=== PATIENT | male | born 1965 | race Caucasian/White ===

== ENCOUNTER 2024-07-03 20:20 | Inpatient (IN) ==
--- NOTE | 2024-07-03 20:36 | Emergency Department Note ---
Impression & Plan Acute ST elevation myocardial infarction (STEMI) ED Provider Note NAME: SUSAN [id number] NAKUL AGE: 59 SEX: Male INFORMANT: Patient and EMS ED PROVIDER(S): Jose Roberto Diaz MD CHIEF COMPLAINT: Chest pain PLAN: Disposition: Admitted Outpatient prescription management: none Referral: None MEDICAL DECISION MAKING: Patient presented because of chest pain. He was made a heart alert prehospital due to his ST elevation on ECG. On arrival the patient had some mild discomfort but was improved compared to the onset of pain. ECG was concerning for ST elevation PA inferiorly. Patient was started on IV fluids. He had some mildly low blood pressures. Suspect this is related to his inferior PA and his nitroglycerin administration. Patient had an elevated cardiac troponin. Other labs are unremarkable. He had received aspirin prehospital. Dr. Irene of interventional cardiology did evaluate the patient in the emergency department and agreed with the diagnosis of acute ST elevation PA. Patient underwent chest x-ray and this was unremarkable. Patient had no dysrhythmia on cardiac monitoring. He was prepped for transfer to the interventional suite. Consultation was made with Dr. Logan Sexton of the [facility] service. Patient was evaluated in the ER for further management. Patient was transferred to the Leadership Development Manager for further management. I refer you to the EMR for further details. Care/management discussed with: rental manager Level of care consideration(s): After review of the information above and other included data, I feel the patient requires escalation of care to admission Triage Nursing notes: reviewed and agree them. Vital Signs: reviewed and remarkable for no significant abnormalities Additional History obtained from: EMS Chronic Medical/Social Conditions affecting care: COPD, incarceration Prior/ Outside/ External records reviewed: none Differential Diagnosis: Cardiac ischemia, aortic dissection, pulmonary embolism, pneumothorax, pneumonia, pericarditis, myocarditis, esophageal rupture, GERD, cholecystitis, pancreatitis, musculoskeletal, as well as other pathologies. Diagnostics, independently interpreted by me: ECG: Twelve-lead ECG reveals findings consistent with acute ST elevation PA inferiorly. Sinus bradycardic rhythm at 53 bpm. Cardiac Monitoring: Cardiac monitoring ordered by me: The patient was placed on continuous cardiac monitoring and observed. It revealed sinus bradycardic rhythm at 58 bpm. Medical decision rules: none Imaging studies: Chest x-ray. Findings: A chest x-ray was performed and revealed no pneumothorax, effusion, infiltrate, pulmonary edema, free air under the diaphragm, or wide mediastinum. Impression: No acute disease. HPI: 59 year old Male arrives for evaluation of chest pain. This started 1930 tonight and is central. The patient also notes the following associated symptoms, nausea, SOB. The patient has been given ASA and 2 nitro for relieving factors. Current pain is rated as 4/10. Pain was a 8/10. No prior cardiac hx but fam hx noted per patient. Pt denies LOC, headache, fevers, chills, diaphoresis, visual changes, neck pain, vomiting, abdominal pain, back pain, melena, hematochezia, urinary symptoms, numbness, weakness, lymphadenopathy, rash, or other complaints. . PAST MEDICAL HISTORY: See Below, HTN, COPD PAST SURGICAL HISTORY: See Below, SOCIAL HISTORY: See Below, incarcerated HOME MEDICATIONS: See Below ALLERGIES: See Below VITALS: See Below PHYSICAL EXAMINATION: GENERAL: Awake, alert, uncomfortable-appearing, in no distress HENT: Normocephalic, atraumatic. Oropharynx unremarkable. EYES: Normal conjunctiva. Sclera non-icteric. NECK: Inspection normal. Non-tender. Supple. No nuchal rigidity. FROM. No masses. RESPIRATORY: Clear to auscultation. No wheezes. No rales. Normal respiratory effort. CARDIAC: Normal rate. Normal rhythm. No murmurs. No rubs. Extremities warm and well perfused. Pulses equal. No JVD. GI: Soft, non-distended. No tenderness to palpation. No rebound or guarding. No masses. RECTAL: Deferred. MUSCULOSKELETAL: Atraumatic. Chest examination reveals no tenderness. The back is symmetrical on inspection without obvious abnormality. There is no CVA tenderness to palpation. No joint edema. LOWER EXTREMITIES: Calves are equal size bilaterally and non-tender. No edema. No discoloration. skin gra NEURO: Normal sensorium. No sensory or motor deficits noted. SKIN: No rash or jaundice noted. PROCEDURES: none CRITICAL CARE: I have personally spent 30 minutes of critical care time in the direct management of this patient. This includes bedside care, interpretation of diagnostic studies, and testing, discussion with consultants, patient, and other required patient management activities. These minutes are in excess of all separately billable procedures. OBSERVATION NOTE: none Past Med/Surg History Problem List (Updated 07/04/24 @ 01:23 by Logan Sexton MD) Hyperlipidemia LDL goal <55 Hyperglycemia CKD (chronic kidney disease) stage 2, GFR 60-89 ml/min Acute ST elevation myocardial infarction (STEMI) (Acute) Medical History (Updated 07/04/24 @ 01:23 by Logan Sexton MD) Smoking hx Elevated fasting glucose COPD (chronic obstructive pulmonary disease) Family History (Updated 07/03/24 @ 21:56 by ADALBERTO Roberson) Mother Coronary heart disease Other Dyslipidemia Hypertension Social History Smoking Status: Former smoker Hx Alcohol Use: No Hx Substance Use: Yes Preferred Language: Chinese Beliefs That Will Affect Care: None Current Living Situation: Other Current Living Situation Comment: Correctional facility Feels Safe at Home: Yes Allergies Allergies Allergy/AdvReac Type Severity Reaction Status Date / Time No Known Allergies Allergy Unverified 07/03/24 23:22 Results & Data (ED) Vital Signs Vital Signs - 24 hr 07/03/24 20:24 07/03/24 20:24 07/03/24 20:26 Temperature 36.9 C Temperature Source Oral Pulse Rate 58 L 59 L Pulse Rate [Apical] Pulse Rate from SpO2 Sensor Respiratory Rate 21 Respiratory Effort / Characteristics Non-Labored Respiratory Depth Normal Blood Pressure 91/67 L Blood Pressure [Right Arm] Blood Pressure Mean 75 Blood Pressure Mean [Right Arm] Pulse Oximetry 94 94 Oxygen Delivery Method Room Air Room Air Oxygen Flow Rate Sepsis Recent Fever Within 48 Hours No Sepsis New/Unexplained Change in Mental Status No Sepsis Action Taken by Nursing Physician Notified 07/03/24 20:34 07/03/24 20:35 07/03/24 20:35 Temperature Temperature Source Pulse Rate 58 L Pulse Rate [Apical] Pulse Rate from SpO2 Sensor Respiratory Rate 20 Respiratory Effort / Characteristics Respiratory Depth Blood Pressure Blood Pressure [Right Arm] Blood Pressure Mean Blood Pressure Mean [Right Arm] Pulse Oximetry 93 94 94 Oxygen Delivery Method Nasal Cannula Room Air Room Air Oxygen Flow Rate 2 Sepsis Recent Fever Within 48 Hours Sepsis New/Unexplained Change in Mental Status Sepsis Action Taken by Nursing 07/03/24 20:38 07/03/24 20:39 07/03/24 20:39 Temperature Temperature Source Pulse Rate 58 L Pulse Rate [Apical] 56 L Pulse Rate from SpO2 Sensor 58 L Respiratory Rate 17 20 Respiratory Effort / Characteristics Non-Labored Respiratory Depth Normal Blood Pressure 105/68 Blood Pressure [Right Arm] 105/68 Blood Pressure Mean 84 Blood Pressure Mean [Right Arm] 80 Pulse Oximetry 94 94 Oxygen Delivery Method Room Air Oxygen Flow Rate Sepsis Recent Fever Within 48 Hours Sepsis New/Unexplained Change in Mental Status Sepsis Action Taken by Nursing 07/03/24 20:39 07/03/24 20:39 07/03/24 20:41 Temperature Temperature Source Pulse Rate 55 L Pulse Rate [Apical] Pulse Rate from SpO2 Sensor 56 L Respiratory Rate 21 Respiratory Effort / Characteristics Respiratory Depth Blood Pressure 105/68 105/68 Blood Pressure [Right Arm] Blood Pressure Mean 84 84 Blood Pressure Mean [Right Arm] Pulse Oximetry 93 Oxygen Delivery Method Oxygen Flow Rate Sepsis Recent Fever Within 48 Hours Sepsis New/Unexplained Change in Mental Status Sepsis Action Taken by Nursing 07/03/24 20:50 Temperature Temperature Source Pulse Rate Pulse Rate [Apical] Pulse Rate from SpO2 Sensor Respiratory Rate Respiratory Effort / Characteristics Respiratory Depth Blood Pressure Blood Pressure [Right Arm] Blood Pressure Mean Blood Pressure Mean [Right Arm] Pulse Oximetry Oxygen Delivery Method Room Air Oxygen Flow Rate Sepsis Recent Fever Within 48 Hours Sepsis New/Unexplained Change in Mental Status Sepsis Action Taken by Nursing Laboratory Data 07/03/24 20:29 07/03/24 20:29 Lab Results 07/03/24 07/03/24 Range/Units 20:29 21:23 WBC 10.48 (4.8-10.8) K/ul RBC 5.50 (4.70-6.10) M/uL Hgb 17.4 (14.0-18.0) g/dl POC Hgb 17.7 (14.0-18.0) g/dl Hct 49.1 (42.0-52.0) % POC Hct 52 (42-52) % MCV 89.3 (80.0-100.0) fL MCH 31.6 (25.0-34.0) pg MCHC 35.4 (32.0-36.0) g/dL RDW Std Deviation 39.6 (36.4-46.3) fL RDW Coeff of Lili 12.0 (11.5-14.5) % Plt Count 295 (130-400) K/uL MPV 10.3 (9.4-12.4) fL Immature Gran % (Auto) 0.4 % Neut % (Auto) 74.9 % Lymph % (Auto) 17.7 % Edgar % (Auto) 5.4 % Eos % (Auto) 1.0 % Baso % (Auto) 0.6 % Neut # (Auto) 7.85 H (1.40-6.50) K/uL Lymph # (Auto) 1.85 (1.20-3.40) K/uL Edgar # (Auto) 0.57 (0.11-0.59) K/uL Eos # (Auto) 0.11 (0.00-0.50) K/uL Baso # (Auto) 0.06 (0.00-0.20) K/uL Immature Gran # (Auto) 0.04 (0.01-0.20) K/uL PT 10.3 (9.0-12.0) Seconds INR 0.9 (0.9-1.1) APTT 21 (21-31) Seconds PTT Ratio 0.8 Activ Coag Time Kaolin 181 H (94-140) SECONDS POC Sodium 140 (135-144) mmol/L Sodium 137 (136-145) mmol/L POC Potassium 4.3 (3.3-5.0) mmol/L Potassium 4.3 (3.5-5.1) mmol/L POC Chloride 104 (101-112) mmol/L Chloride 102 (98-107) mmol/L Carbon Dioxide 25 (21-32) mmol/L POC Total CO2 26 (24-31) mmol/L Anion Gap 10 (3-11) POC Anion Gap 15.0 L (16-25) mmol/L POC BUN 19 H (7-18) mg/dl BUN 17 (6-23) mg/dl Creatinine 1.34 (0.6-1.4) mg/dl POC Creatinine 1.3 (0.6-1.3) mg/dl Est Cr Clr Drug Dosing 66.0 ml/min eGFR 61.40 BUN/Creatinine Ratio 12.7 (10-20) Glucose 215 H (70-99(Fasting)) mg/dl POC Glucose (other) 212 H (70-99) mg/dl Calcium 10.4 H (8.6-10.3) mg/dl POC Ioniz Calcium Kamlesh 1.17 (1.12-1.32) mmol/l Magnesium 2.1 (1.7-2.4) mg/dl Total Bilirubin 0.4 (0.2-1.0) mg/dl AST 20 (13-39) U/L ALT 14 (7-52) U/L Alkaline Phosphatase 72 (34-104) U/L Total Creatine Kinase 87 (30-223) U/L Troponin I High Sens 91.0 H* (0-20) pg/ml B-Natriuretic Peptide 26 (0-100) pg/ml Total Protein 8.1 (6.0-8.3) gm/dl Albumin 5.2 H (3.4-5.0) gm/dl Globulin 2.9 (2.5-4.0) gm/dl Albumin/Globulin Ratio 1.8 (0.9-2) Triglycerides 212 H (0-150) mg/dl Cholesterol 229 H (0-200) mg/dl LDL Cholesterol, Calc 142 mg/dl VLDL Cholesterol, Calc 42 H (0-30) mg/dl HDL Cholesterol 45 mg/dl Cholesterol/HDL Ratio 5.1 H (0-5) Lipase 34 (11-82) U/L TSH 3.497 (0.300-4.500) uIu/ml Administered Medications Parenteral Electrolytes (Plasma-Lyte A Ph 7.4) 1,000 mls @ 100 mls/hr IV .Q10H ONE Stop: 07/04/24 08:04 Last Admin: 07/03/24 23:41 Dose: 100 mls/hr Documented By: CEDRIC Elmore (Icu Protocol For Hyperglycemia) 1 each N/A Q6 FOSTER Stop: 07/06/24 00:00 Last Admin: 07/04/24 01:30 Dose: Not Given Documented By: CEDRIC Discontinued Medications Clopidogrel Bisulfate (Clopidogrel Bisulfate 300 Mg Tab) Confirm Administered Dose 600 mg .ROUTE .STK-MED ONE Stop: 07/03/24 21:19 Last Admin: 07/03/24 21:27 Dose: 600 mg Documented By: NARESH Fentanyl Citrate (Fentanyl Citrate Pf 100 Mcg/2 Ml Vial) Confirm Administered Dose 100 mcg .ROUTE .STK-MED ONE Stop: 07/03/24 20:40 Last Admin: 07/03/24 21:25 Dose: 50 mcg Documented By: NARESH Heparin Sodium (Porcine) (Heparin (Porcine) 1000 Unit/Ml 10 Ml (Leadership Development Manager Use Only)) Confirm Administered Dose 10,000 units .ROUTE .STK-MED ONE Stop: 07/03/24 20:40 Last Admin: 07/03/24 21:26 Dose: 13,000 units Documented By: NARESH Heparin Sodium (Porcine) (Heparin (Porcine) 1000 Unit/Ml 10 Ml (Leadership Development Manager Use Only)) Confirm Administered Dose 10,000 units .ROUTE .STK-MED ONE Stop: 07/03/24 21:25 Last Admin: 07/03/24 21:27 Dose: Not Given Documented By: NARESH Heparin Sodium/Sodium Chloride (Heparin In Nss Infusion 1000 Unit/500 Ml (2 U/Ml) Bag) Confirm Administered Dose 3,000 units IV .STK-MED ONE Stop: 07/03/24 20:40 Last Admin: 07/03/24 21:26 Dose: 3,000 units Documented By: [id number] Ioversol (Optiray 350) Confirm Administered Dose 1 ml .ROUTE .STK-MED ONE Stop: 07/03/24 20:43 Last Admin: 07/03/24 21: Dose: 70 ml Documented By: [id number] Midazolam HCl (Midazolam Hcl 1 Mg/Ml 2ml Vial) Confirm Administered Dose 2 mg .ROUTE .ST-MED ONE Stop: 07/03/24 20:39 Last Admin: 07/03/24 21:25 Dose: Not Given Documented By: NARESH Miscellaneous Information (Patient's Allergy Info Needs Entered) 1 each N/A NOW STA Stop: 07/03/24 21:49 Last Admin: 07/03/24 22:14 Dose: 1 each Documented By: CEDRIC Miscellaneous Information (Patient's Allergy Info Needs Entered) 1 each N/A NOW STA Stop: 07/03/24 22:39 Last Admin: 07/03/24 23:42 Dose: 1 each Documented By: CEDRIC Nicardipine HCl (Nicardipine Hcl Inj 2.5 Mg/Ml 10 Ml Amp) Confirm Administered Dose 25 mg .ROUTE .STK-MED ONE Stop: 07/03/24 20:40 Last Admin: 07/03/24 21:26 Dose: 25 mg Documented By: [id number] Nitroglycerin/Dextrose (Nitroglycerin/D5w 100mcg/Ml 20ml Syr) Confirm Administered Dose 2,000 mcg .ROUTE .STK-MED ONE Stop: 07/03/24 20:41 Last Admin: 07/03/24 21:28 Dose: 2,000 mcg Documented By: [id number] Phenylephrine HCl (Phenylephrine 100mcg/Ml 5ml Syr) Confirm Administered Dose 100 mcg .ROUTE .STK-MED ONE Stop: 07/03/24 21:12 Last Admin: 07/03/24 21:27 Dose: 600 mcg Documented By: NARESH Co-signed By: BPY Phenylephrine HCl (Phenylephrine 100mcg/Ml 5ml Syr) Confirm Administered Dose 100 mcg .ROUTE .STK-MED ONE Stop: 07/03/24 21:15 Last Admin: 07/03/24 21:27 Dose: Not Given Documented By: CMB Imaging Data Radiologist's Impression: Chest X-Ray 07/03/24 20:29 Exam(s): XR CXR 1 VIEW EXAM: XR Chest, 1 View CLINICAL HISTORY: Reason for exam: Chest pain, nonspecific. TECHNIQUE: Frontal view of the chest. COMPARISON: No relevant prior studies available. FINDINGS: Lungs: Slightly prominent interstitial markings over the mid to lower lungs. No definite acute focal infiltrate or consolidation is seen. Pleural space: Unremarkable. No pneumothorax. Heart: Unremarkable. No cardiomegaly. Mediastinum: Unremarkable. Normal mediastinal contour. Bones/joints: Unremarkable. No acute fracture. Upper abdomen: There is no pneumoperitoneum under the diaphragm. IMPRESSION: Slightly prominent interstitial markings over the mid to lower lungs. No definite acute focal infiltrate or consolidation is seen. Electronically signed by: Bryan Benedict MD 07/03/24 22:05 PM Discharge Plan Visit Data Chief Complaint: Heart Alert Stated Complaint: HEART ALERT ED Provider: Jose Roberto Diaz Discharge Problem: Acute ST elevation myocardial infarction (STEMI) Patient Disposition: Admitted As Inpatient Discharge Instructions Interventions: ED Discharge Assessment Last Done: 07/03/24 20:50
[2024-07-03 20:41] LABS: iSTAT Creatinine 1.3 mg/dl (0.6-1.3); iSTAT Hemoglobin 17.7 g/dl (14.0-18.0); iSTAT Ionized Calcium 1.17 mmol/l (1.12-1.32); iSTAT Potassium 4.3 mmol/L (3.3-5.0)
[2024-07-03 20:58] LABS: Basophils # (auto) 0.06 K/uL (0.00-0.20); Basophils % (auto) 0.6 %; Eosinophils # (auto) 0.11 K/uL (0.00-0.50); Hematocrit (blood only) 49.1 % (42.0-52.0); Hemoglobin 17.4 g/dl (14.0-18.0); Immature Granulocytes # (auto) 0.04 K/uL (0.01-0.20); Immature Granulocytes % (auto) 0.4 %; Lymphocytes # (auto) 1.85 K/uL (1.20-3.40); Lymphocytes % (auto) 17.7 %; Mean Corpuscular Hemoglobin 31.6 pg (25.0-34.0); Mean Corpuscular Hgb Conc 35.4 g/dL (32.0-36.0); Mean Corpuscular Volume 89.3 fL (80.0-100.0); Mean Platelet Volume 10.3 fL (9.4-12.4); Monocytes # (auto) 0.57 K/uL (0.11-0.59); Monocytes % (auto) 5.4 %; Neutrophils # (auto) 7.85 K/uL (1.40-6.50); Neutrophils % (auto) 74.9 %; Platelet Count 295 K/uL (130-400); RDW Standard Deviation 39.6 fL (36.4-46.3); White Blood Count 10.48 K/ul (4.8-10.8)
[2024-07-03 21:19] LABS: INR 0.9 (0.9-1.1); Partial Thromboplastin Ratio 0.8; Partial Thromboplastin Time 21 Seconds (21-31); Prothrombin Time 10.3 Seconds (9.0-12.0)
[2024-07-03] MEDS: fentaNYL citrate PF 100 MCG/2 ML VIAL ONE (21:25)
[2024-07-03] MEDS: MIDAZOLAM HCL 1 MG/ML 2ML VIAL ONE (21:25)
[2024-07-03] MEDS: niCARdipine HCL INJ 2.5 MG/ML 10 ML AMP ONE (21:26)
[2024-07-03] MEDS: OPTIRAY 350 ONE (21:26)
[2024-07-03] MEDS: HEPARIN (PORCINE) 1000 UNIT/ML 10 ML (CATH LAB USE ONLY) ONE ×2 (21:26→21:27)
[2024-07-03] MEDS: CLOPIDOGREL BISULFATE 300 MG TAB ONE (21:27)
[2024-07-03] MEDS: PHENYLEPHRINE 100MCG/ML 5ML SYR ONE ×2 (21:27)
[2024-07-03] MEDS: NITROGLYCERIN/D5W 100MCG/ML 20ML SYR ONE (21:28)
[2024-07-03 21:34] LABS: Thyroid Stimulating Hormone 3.497 uIu/ml (0.300-4.500)
--- NOTE | 2024-07-03 21:35 | History & Physical Report ---
Date of Service July 03, 2024 Assessment & Plan (1) Acute ST elevation myocardial infarction (STEMI): (2) CKD (chronic kidney disease) stage 2, GFR 60-89 ml/min: (3) Hyperglycemia: (4) Hyperlipidemia LDL goal <55: Plan The patient is a 59-year-old male with no significant past medical history.The patient presented to the emergency department from [facility], after developing acute onset of chest pain at about 730 this evening, while he was receiving his usual medications there. He was given aspirin 324 mg, and sublingual nitroglycerin x 2, which took his pain from a 8/10 down to 4/10. Upon initial messaging from [facility], patient was made as a heart alert. Upon arrival to the ED, he was found to have an inferior wall STEMI, and was taken emergently to the cardiac [facility], where a successful PCI with JOSIE to mid circumflex 99% lesion, that was reduced to 0% was performed. The patient is being admitted to the ICU, for ongoing medical care. Significant laboratories revealed troponin of 91.0, glucose 212, and creatinine 1.34. #Acute inferior wall STEMI- Status post successful PCI with JOSIE mid circumflex 99% lesion reduced to 0% The patient will be admitted to the ICU post cardiac catheterization for serial cardiac enzymes, serial EKG's, cardiac rhythm monitoring and a 2-D echocardiogram with Dopplers. DAPT, aspirin 81 mg daily and clopidogrel 75 mg daily x 1 year Metoprolol tartrate 12.5 mg p.o. twice daily, start in a.m. due to relatively blood pressure at this time Start atorvastatin high-dose 40 mg daily Consult cardiology Hyperlipidemia- LDL 142 with target less than 55 Starting atorvastatin 40 mg daily as noted Hyperglycemia- Glucose 212 ICU hyperglycemic protocol Hemoglobin A1c ordered and pending Will need diabetic education and diet planning CKD stage II- Creatinine 1.34 upon admission, with no previous baseline for comparison Repeating laboratories in the a.m. History of Present Illness Chief Complaint: The patient presented to the emergency department from [facility], after developing acute onset of chest pain at about 730 this evening, while he was receiving his usual medications there. He was given aspirin 324 mg, and sublingual nitroglycerin x 2, which took his pain from a 8/10 down to 4/10. Upon initial messaging from [facility], patient was made as a heart alert. Upon arrival to the ED, he was found to have an inferior wall STEMI, and was taken emergently to the cardiac [facility], where a successful PCI with JOSIE to mid circumflex 99% lesion, that was reduced to 0% was performed. The patient is being admitted to the ICU, for ongoing medical care. Primary Care Provider: [facility] The patient is a 59-year-old male with no significant past medical history.The patient presented to the emergency department from [facility], after developing acute onset of chest pain at about 730 this evening, while he was receiving his usual medications there. He was given aspirin 324 mg, and sublingual nitroglycerin x 2, which took his pain from a 8/10 down to 4/10. Upon initial messaging from [facility], patient was made as a heart alert. Upon arrival to the ED, he was found to have an inferior wall STEMI, and was taken emergently to the cardiac [facility], where a successful PCI with JOSIE to mid circumflex 99% lesion, that was reduced to 0% was performed. The patient is being admitted to the ICU, for ongoing medical care. Significant laboratories revealed troponin of 91.0, glucose 212, and creatinine 1.34. Allergies Allergy/AdvReac Type Severity Reaction Status Date / Time No Known Allergies Allergy Unverified 07/03/24 23:22 Past Med/Surg History Problem List (Updated 07/04/24 @ 01:23 by Logan Sexton MD) Hyperlipidemia LDL goal <55 Hyperglycemia CKD (chronic kidney disease) stage 2, GFR 60-89 ml/min Acute ST elevation myocardial infarction (STEMI) (Acute) Medical History (Updated 07/04/24 @ 01:23 by Logan Sexton MD) Smoking hx Elevated fasting glucose COPD (chronic obstructive pulmonary disease) Family History (Updated 07/03/24 @ 21:56 by ADALBERTO Roberson) Mother Coronary heart disease Other Dyslipidemia Hypertension Social History Smoking Status: Former smoker Hx Alcohol Use: No Hx Substance Use: Yes Preferred Language: Malian Beliefs That Will Affect Care: None Current Living Situation: Other Current Living Situation Comment: [facility] Feels Safe at Home: Yes Review of Systems Review of Systems: The patient denies chest pain, palpitations, shortness of breath, dyspnea on exertion, cough, lower extremity swelling, sore throat, fevers, chills, sweats, weight change, fatigue, nausea, vomiting, diarrhea , constipation, abdominal pain, pelvic pain, blood in urine or stool, dysuria, urinary frequency or urgency, lightheadedness, dizziness, headache, memory loss, loss of consciousness, rash, abnormal bruising or bleeding, imbalance, focal or generalized weakness, numbness or tingling in arms or legs, generalized arthralgias or myalgias, back or neck pain, or night sweats. The review of systems is otherwise negative other than for that already noted above, and at least 10 systems have been reviewed. Physical Exam Physical Exam: The patient is awake, alert and oriented 3, well developed and well nourished, normocephalic and atraumatic, lying in bed and in no acute distress. HEENT--PERRL, EOMI, mucous membranes and oropharynx normal. Neck--supple. No JVD. No bruits. Thyroid normal, trachea midline, no adenopathy. Heart--normal S1 and S2. No murmurs, rubs or gallops. Lungs--clear bilaterally, no respiratory distress, no accessory muscle use. Abdomen--normal bowel sounds and soft. Nontender. Nondistended, no hernias or masses, no organomegaly. Extremities--no cyanosis or clubbing. No edema. There are good distal pulses b/l. Dermatologic--normal skin turgor, normal color, no abnormal lymph nodes, no rash. Neurologic--cranial nerves II through XII grossly intact. Rheumatologic--left lower extremity with graft over left lower perineal area, with normal dorsiflexion and range of motion in general noted Psychiatric--normal affect. Results & Data Results & Data Vital Signs (Past 12 Hours) Vital Signs Temp Pulse Pulse Resp BP BP Pulse Ox 07/03/24 20:50 07/03/24 20:39 56 L 20 105/68 94 07/03/24 20:35 58 L 20 94 07/03/24 20:35 94 07/03/24 20:26 59 L 07/03/24 20:24 94 07/03/24 20:24 36.9 C 58 L 21 91/67 L 94 O2 Del Method 07/03/24 20:50 Room Air 07/03/24 20:39 Room Air 07/03/24 20:35 Room Air 07/03/24 20:35 Room Air 07/03/24 20:26 07/03/24 20:24 Room Air 07/03/24 20: Room Air Laboratory Results Laboratory Results WBC 10.48 K/ul (4.8-10.8) 07/03/24: RBC 5.50 M/uL (4.70-6.10) 07/03/24: Hgb 17.4 g/dl (14.0-18.0) 07/03/24 POC Hgb 17.7 g/dl (14.0-18.0) 07/03/24 Hct 49.1 % (42.0-52.0) 07/03/24 POC Hct 52 % (42-52) 07/03/24 MCV 89.3 fL (80.0-100.0) 07/03/24 MCH 31.6 pg (25.0-34.0) 07/03/24 MCHC 35.4 g/dL (32.0-36.0) 07/03/24 RDW Std Deviation 39.6 fL (36.4-46.3) 07/03/24 RDW Coeff of Lili 12.0 % (11.5-14.5) 07/03/24 Plt Count 295 K/uL (130-400) 07/03/24 MPV 10.3 fL (9.4-12.4) 07/03/24 Immature Gran % (Auto) 0.4 % 07/03/24 Neut % (Auto) 74.9 % 07/03/24 Lymph % (Auto) 17.7 % 07/03/24 [place] % (Auto) 5.4 % 07/03/24 Eos % (Auto) 1.0 % 07/03/24 Baso % (Auto) 0.6 % 07/03/24 Neut # (Auto) 7.85 K/uL (1.40-6.50) H 07/03/24 Lymph # (Auto) 1.85 K/uL (1.20-3.40) 07/03/24 [place] # (Auto) 0.57 K/uL (0.11-0.59) 07/03/24 20: Eos # (Auto) 0.11 K/uL (0.00-0.50) 07/03/24: Baso # (Auto) 0.06 K/uL (0.00-0.20) 07/03/24: Immature Gran # (Auto) 0.04 K/uL (0.01-0.20) 07/03/24: PT 10.3 Seconds (9.0-12.0) 07/03/24: INR 0.9 (0.9-1.1) 07/03/24: APTT 21 Seconds (21-31) 07/03/24 PTT Ratio 0.8 07/03/24 Activ Coag Time Kaolin 181 SECONDS (94-140) H 07/03/24 21:23 POC Sodium 140 mmol/L (135-144) 07/03/24: Sodium 137 mmol/L (136-145) 07/03/24 20: POC Potassium 4.3 mmol/L (3.3-5.0) 07/03/24: Potassium 4.3 mmol/L (3.5-5.1) 07/03/24: POC Chloride 104 mmol/L (101-112) 07/03/24 Chloride 102 mmol/L (98-107) 07/03/24 Carbon Dioxide 25 mmol/L (21-32) 07/03/24: POC Total CO2 26 mmol/L (24-31) 07/03/24: Anion Gap 10 (3-11) 07/03/24: POC Anion Gap 15.0 mmol/L (16-25) L 07/03/24: POC BUN 19 mg/dl (7-18) H 07/03/24 BUN 17 mg/dl (6-23) 07/03/24 Creatinine 1.34 mg/dl (0.6-1.4) 07/03/24 20: POC Creatinine 1.3 mg/dl (0.6-1.3) 07/03/24 Est Cr Clr Drug Dosing 66.0 ml/min 07/03/24 20: eGFR 61.40 07/03/24 20: BUN/Creatinine Ratio 12.7 (10-20) 07/03/24 20: Glucose 215 mg/dl (70-99(Fasting)) H 07/03/24 20: POC Glucose (other) 212 mg/dl (70-99) H 07/03/24 20: Calcium 10.4 mg/dl (8.6-10.3) H 07/03/24: POC Ioniz Calcium Kamlesh 1.17 mmol/l (1.12-1.32) 07/03/24: Magnesium 2.1 mg/dl (1.7-2.4) 07/03/24: Total Bilirubin 0.4 mg/dl (0.2-1.0) 07/03/24 20: AST 20 U/L (13-39) 07/03/24: ALT 14 U/L (7-52) 07/03/24: Alkaline Phosphatase 72 U/L (34-104) 07/03/24 20: Total Creatine Kinase 87 U/L (30-223) 07/03/24: Troponin I High Sens 06712.4 pg/ml (0-20) H* D 07/03/24 23:20 B-Natriuretic Peptide 26 pg/ml (0-100) 07/03/24: Total Protein 8.1 gm/dl (6.0-8.3) 07/03/24: Albumin 5.2 gm/dl (3.4-5.0) H 07/03/24: Globulin 2.9 gm/dl (2.5-4.0) 07/03/24: Albumin/Globulin Ratio 1.8 (0.9-2) 07/03/24: Triglycerides 212 mg/dl (0-150) H 07/03/24: Cholesterol 229 mg/dl (0-200) H 07/03/24 20: LDL Cholesterol, Calc 142 mg/dl 07/03/24 20: VLDL Cholesterol, Calc 42 mg/dl (0-30) H 07/03/24: HDL Cholesterol 45 mg/dl 02/15/25 20:29 Cholesterol/HDL Ratio 5.1 (0-5) H 07/03/24 20:29 Lipase 34 U/L (11-82) 07/03/24 20:29 TSH 3.497 uIu/ml (0.300-4.500) 07/03/24 20:29 Nasal Screen MRSA (PCR) Negative (Negative) 07/03/24 Unknown Impressions Chest X-Ray 07/03/24 20:29 Exam(s): XR CXR 1 VIEW EXAM: XR Chest, 1 View CLINICAL HISTORY: Reason for exam: Chest pain, nonspecific. TECHNIQUE: Frontal view of the chest. COMPARISON: No relevant prior studies available. FINDINGS: Lungs: Slightly prominent interstitial markings over the mid to lower lungs. No definite acute focal infiltrate or consolidation is seen. Pleural space: Unremarkable. No pneumothorax. Heart: Unremarkable. No cardiomegaly. Mediastinum: Unremarkable. Normal mediastinal contour. Bones/joints: Unremarkable. No acute fracture. Upper abdomen: There is no pneumoperitoneum under the diaphragm. IMPRESSION: Slightly prominent interstitial markings over the mid to lower lungs. No definite acute focal infiltrate or consolidation is seen. Electronically signed by: Bryan Benedict MD 07/03/24 22:05 PM Code Status & VTE Plan Code Status Full code VTE Prophylaxis Plan VTE Prophylaxis will be ordered: Yes PG Care Time/CCT Total # of Minutes Spent Total Time Spent with Patient: Total time spent is greater than 50% in coordination of care (as documented) at patient's floor/unit and/or counseling patient: Coding Level of Care Code 78474 INT INP/OBS CARE 3/75MIN Diagnoses Acute ST elevation myocardial infarction (STEMI) I21.3 CKD (chronic kidney disease) stage 2, GFR 60-89 ml/min N18.2 Hyperglycemia R73.9 Hyperlipidemia LDL goal <55 E78.5
[2024-07-03 21:37] LABS: Albumin Level 5.2 gm/dl (3.4-5.0); Bilirubin,Total 0.4 mg/dl (0.2-1.0); Calcium 10.4 mg/dl (8.6-10.3); Magnesium 2.1 mg/dl (1.7-2.4); Potassium 4.3 mmol/L (3.5-5.1)
[2024-07-03 21:43] LABS: Albumin Globulin Ratio 1.8 (0.9-2); BUN Creatinine Ratio 12.7 (10-20); Globulin 2.9 gm/dl (2.5-4.0); Total Protein 8.1 gm/dl (6.0-8.3)
--- NOTE | 2024-07-03 21:49 | Cardiac Catheterization ---
Cardiac Cath Procedure Full Procedure Date July 03, 2024 Pre-Procedure Diagnosis Pre-Procedure Diagnosis: STEMI AUC Score AUC Score: acute SC Post-Procedure Diagnosis Post-Procedure Diagnosis: Successful PCI Procedure(s) Performed Procedure(s) Performed: Coronary Angiography and Drug Eluting Stent Director Of Conservation Manas Irene MD Estimated Blood Loss Estimated Blood Loss: None Summary of Findings Culprit for ST elevation SC is a subtotally occluded circumflex Successful PCI of the circumflex with a 2.5 x 23 drug-eluting stent. Stenosis reduced from 99% to 0% normal left-sided filling pressure No aortic stenosis Recommendations Admit to ICU Dual antiplatelet therapy with aspirin and Plavix for target of 1 year Echo prior to discharge Add beta-ryland and statin as tolerated Procedure description This patient was brought to the Program Scheduler emergently. Risk and benefits of the procedure were described in detail. These included injury or even . He understood these risks and informed consent was signed and witnessed. He was brought to the Program Scheduler and placed supine on the table. The right wrist was prepped and draped in the usual sterile fashion. I personally performed moderate sedation on this patient. Ruyd-ld-avla contact and hemodynamic monitoring was provided for the entirety of the procedure by me. 50 mcg of fentanyl was given for conscious sedation. 2 mL of 1% lidocaine was given in the right wrist for local anesthesia. Access to the right radial artery was made using modified center technique and a micropuncture kit. Eventually a 56 Malagasy slender sheath was advanced over the wire. Radial cocktail was given only with nicardipine. initially the left was imaged with a JL 3.5 catheter. I next swapped for a JR4 guide and this was used to image the right coronary artery. At this point I elected to intervene on the circumflex. 8000 heparin was given. ACT was monitored. Additional heparin was given as needed. The guide catheter was EBU 3.0. The wire was a run-through. This was directed into the circumflex/OM. The lesion was predilated the 2.5 x 15 NC balloon up to 10 janette for 10 seconds. The lesion was then stented with a 2.5 x 23 drug-eluting stent deployed at 12 janette for 15 seconds. Final angiograms with and without the wire demonstrated good stent apposition with no evidence of a dissection or perforation. Tolerated procedure well no immediate complications noted. Radial band was used for hemostasis. Findings Left main is a large caliber short length artery that divides into an LAD and circumflex. There is no angiographic disease LAD: Medium to large artery takeoff which gives rise to 2 small diagonal vessels. He continues the anterior interventricular groove and gives multiple septal branches on its way to supply the true apex. There is a mild lesion beginning in the proximal vessel and extending to the second diagonal around 30%. There is a section of moderate intramyocardial bridging in the mid vessel. The diagonals have mild diffuse disease. Circumflex: Medium to large artery takeoff gives rise to a trivial OM1 and then continues in the AV groove where it is subtotally occluded. After intervention, It is seen to give rise to a small OM 2 a medium sized OM 3 and a small lateral branch. The circumflex proper continues as a very small terminal branch in the AV groove. The circumflex is stented from 99% subtotally occluded to 0% residual today. RCA: Medium size artery that gives rise to a small to medium PDA and a slightly bigger PL branch. There is proximal disease around 30 to 40%. Further down in the AV groove there are some mild luminal irregularities. Hemodynamics Rest Ao:: 107/58 Final Ao: 101/57 LV: 109/1, LVEDP 15 mmHg Recommendations Recommendations: Management Recommendatons ( dual antiplatelet therapy initiated in the Program Scheduler with boluses of aspirin and Plavix. Continue Plavix 75 mg and aspirin 81 mg daily for target of 1 year. Add beta-ryland and statin as tolerated.) Radiation Exposure (mGy) 929 mGy Contrast (mls) 70 Procedural Complication(s) none Disposition ICU I attest to the content of the Intraoperative Record and any orders documented therein. Any exceptions are noted below. ACC Data: Program Scheduler Cardiac Status Clinical evaluation leading to the procedure CAD Presenation: STEMI STEMI OR Non-STEMI Symptom Onset Date: 07/03/24 Symptom Onset Time: 17:30 Coronary Anatomy Dominant: Left LAD (% Stenosis): Proximal ( 30) and Mid ( 30) D2 (% Stenosis): Mid (30) Circumflex (% Stenosis): Mid ( 99% subtotally occluded) RCA (% Stenosis): Proximal ( 40) Diagnostic Physicians Name: Manas Irene MD Closure Device Recommendations: Management Recommendatons ( dual antiplatelet therapy initiated in the Program Scheduler with boluses of aspirin and Plavix. Continue Plavix 75 mg and aspirin 81 mg daily for target of 1 year. Add beta-ryland and statin as tolerated.) Lesion Segment Name: mid circumflex Culprit Artery: Yes Stenosis Prior to Rx (%): 99 Pre-Procedure KEVIN Flow: 2 Lesion Length (mm): 15 Guidewire Across Lesion: Stenosis Post-Procedure (%): 0 Post-Procedure KEVIN Flow: 3 Devices(s) Deployed: Yes (2.5 x 23 drug-eluting stent) Yes
--- NOTE | 2024-07-03 21:49 | Critical Care Consultation ---
Date of Consultation July 03, 2024 Assessment & Plan (1) Acute ST elevation myocardial infarction (STEMI): (2) CKD (chronic kidney disease) stage 2, GFR 60-89 ml/min: Plan Reason Critically Ill: 59 YOM presents as STEMI alert, noted to have inferior ECG changes and is now s/p JOSIE x1 to CIRC. To ICU for hemodyanmic/telemetry monitoring and monitoring of symptomatology. Neuro - No acute needs CAM ICU: NEGATIVE - awake and alert post sedation Cardiac - STEMI acute inferior, s/p JOSIE to CIRC, HX: HTN, prediabetes - STEMI with ecg changes to inferior leads- JOSIE x1 to CIRC - DAPT therapy per cardiology - Plavix and ASA ordered - BB if hemodynamics permit- noted at this time HR 50s BP 108/69- defer to cardiology - ECHO in am- eval EF and then optimize medications - HGB A1c in am- optimization pending results - Lipid panel obtained- initiated atorvastatin 40mg daily - Currently chest pain free - TR band per protocol Respiratory - no acute needs, hx of COPD, previous smoker - No PFTS available for review- reports only on Albuterol inhaler as needed- reports rarely using GI - NO acute needs - Advance diet as tolerated RENAL/LYTES - CKD II, hypercalcemia - history of renal failure per his report following fentanyl overdose - with eGFR 60s- provide 1 liter of plasmalyte overnight following contrast - Hypercalcemia- mild at 10.4 - most likely volume related at this time- follow up with am labs and pursue further workup if indicated - ICU electrolyte prtocol - NO acute needs ENDO - Elevated serum glucose without diagnosis of diabetes - ICU hyperglycemic protocol - HGB A1c in am HEME - No acute needs ID - no concern at this time for infectious etiology LINES/IV ACCESS - PIV, Continue use of these lines DVT PROPHYLAXIS - SCDs, DAPT, Ambulation DISPO: ICU post PCI/JOSIE until hemodynamics and symptoms proven stable. I have personally spent 45 minutes of time in the direct management of this patient. This is a life/limb threatening event. This includes time spent evaluating patient, direct bedside care, chart review, placing orders, interpretation of diagnostic studies, discussion with consultants, patient, and family members, as well as other required patient management activities. This time is exclusive of all separately billable procedures, and teaching time and separate from and in addition to any other critical care service time. Thank you for allowing us to participate in the care of this patient. Please refer to my attending physician's documentation for any further recommendations. Supervising Physician Co-Signing Physician Notes Patient seen and examined. EMR reviewed. Discussed with critical care NEETA and agree with assessment plan as noted. Please refer to my progress note from July 04 for additional details History of Present Illness Reason for Consultation: STEMI s/p PCI with JOSIE x1 to CIRC Requesting Physician: Logan Sexton MD Attending Physician: Logan Sexton MD History of Present Illness 59 YOM: Past medical history of HTN, COPD, pre-diabetes, previous smoker. Patient reports that he went to get his medications around 1930 this evening. He reports that he started to get pain/pressure to the center of his chest- he then returned back to his block and had to walk up 4 flights of stairs. While doing this, the pain in his chest got worse, radiated to his back, was associated with nausea without vomiting, some shortness of breath, and felling cold and diaphoretic. He was brought to the ER as a STEMI alert. He has ECG obtained which did show ST elevations in inferior leads. He received asa and Plavix in the ER, initiated on heparin and taken to the [facility] laborer. Patient reports that his chest pain went away once he got upstairs to the [facility] leaf laborer. He had one JOSIE to the Circ placed and was brought to the ICU. Patient arrives to the ICU awake and alert on room air, he is chest pain free and is on no vasoactive medications at this time. He is with right radial access site that is without hematoma, and sensation and movement are intact, TR band is in place. Patient will remain in ICU overnight for hemodynamic and rhythm monitoring as well as symptom observation. CODE: FULL Allergies Allergy/AdvReac Type Severity Reaction Status Date / Time No Known Allergies Allergy Unverified 07/03/24 23:22 Patient History Medical History (Updated 07/04/24 @ 01:23 by Logan Sexton MD) Smoking hx Elevated fasting glucose COPD (chronic obstructive pulmonary disease) Family History (Updated 07/03/24 @ 21:56 by ADALBERTO Roberson) Mother Coronary heart disease Other Dyslipidemia Hypertension Social History Smoking Status: Former smoker Hx Alcohol Use: No Hx Substance Use: Yes Preferred Language: [place] Beliefs That Will Affect Care: None Current Living Situation: Other Current Living Situation Comment: [facility] Feels Safe at Home: Yes Review of Systems Review of Systems: REVIEW OF SYSTEMS: Constitutional: No fever, sweats or chills Eyes: No diplopia, no worsening or blurred vision ENT: normal hearing, no trouble swallowing Respiratory: (+) COPD, Currently-No cough, sputum, dyspnea at rest or on exertion Cardiovascular: (+) chest pain, tightness- resolved Abdomen: No pain, nausea, vomiting, diarrhea or constipation Musculoskeletal: No joint pain, calf pain, swelling Neurologic: No weakness, numbness/tingling, or balance problems Skin: (+) skin graft to leg Physical Exam Physical Exam: PHYSICAL EXAM: General: awake, alert, no apparent distress Head: Normocephalic, atraumatic ENT: PERRL, EOMI, no pharyngeal exudate, mucous membranes moist Neuro: AAO x 3, speech clear and appropriate, strength intact bilaterally 5/5, sensation intact and equal all extremities and dermatomes, no pronator drift Chest: equal rise and fall of the chest, no accessory muscle use, no heaves or thrills, Clear to auscultation, on room air, Cardiac: Regular rate and rhythm, telemetry reviewed- NSR/SB no ectopy, skin warm dry, cap refill <3 seconds, peripheral pulses +2 no JVD, no murmur, no edema, right radial acess site without ematoma, fingers are warm and sensation intact. GI: NABS x 4 quadrants, soft, nontender to palpation, no rebound, guarding or tenderness : Spontaneously voiding, no pain, no CVA tenderness, Psych: Normal mood and affect Skin: no rash or erythema Results & Data Results & Data Vital Signs (Past 12 Hours) Vital Signs Temp Pulse Pulse Resp BP BP Pulse Ox 07/03/24 20:50 07/03/24 20:39 56 L 20 105/68 94 07/03/24 20:35 58 L 20 94 07/03/24 20:35 94 07/03/24 20:26 59 L 07/03/24 20:24 94 07/03/24 20:24 36.9 C 58 L 21 91/67 L 94 O2 Del Method 07/03/24 20:50 Room Air 07/03/24 20:39 Room Air 07/03/24 20:35 Room Air 07/03/24 20:35 Room Air 07/03/24 20:26 07/03/24 20:24 Room Air 07/03/24 20:24 Room Air Laboratory Results Abnormal lab results 07/03/24 07/03/24 Range/Units 20:29 21:23 Neut # (Auto) 7.85 H (1.40-6.50) K/uL Activ Coag Time Kaolin 181 H (94-140) SECONDS POC Anion Gap 15.0 L (16-25) mmol/L POC BUN 19 H (7-18) mg/dl Glucose 215 H (70-99(Fasting)) mg/dl POC Glucose (other) 212 H (70-99) mg/dl Calcium 10.4 H (8.6-10.3) mg/dl Troponin I High Sens 91.0 H* (0-20) pg/ml Albumin 5.2 H (3.4-5.0) gm/dl Medications Administered Active Medications Aspirin (Aspirin 81 Mg Ectab) [facility] [place]: 08/03/24 08:59 Clopidogrel Bisulfate (Clopidogrel Bisulfate 75 Mg Tab) 75 mg PO [facility] Stop: 08/03/24 08:59 Miscellaneous (Icu Protocol For Hyperglycemia) 1 each N/A ACHS [facility] Stop: 07/06/24 07:29 Pantoprazole Sodium (Pantoprazole 40 Mg Tab) 40 mg PO [facility] Stop: 08/03/24 08:59 ECG Additional Comments: Normal sinus rhythmwith sinus arrhythmia Normal ECG When compared with ECG [id number] 20:24,(unconfirmed) Sinus rhythmhas replacedJunctional rhythm Questionable change inQRS axis ST no longer elevated inInferior leads Coding Level of Care Code 64890 IN/OBS CONSULT LVL 3,45M Diagnoses Acute ST elevation myocardial infarction (STEMI) I21.3 CKD (chronic kidney disease) stage 2, GFR 60-89 ml/min N18.2
--- NOTE | 2024-07-03 22:06 | XRay Report ---
Exam(s): XR CXR 1 VIEW EXAM: XR Chest, 1 View CLINICAL HISTORY: Reason for exam: Chest pain, nonspecific. TECHNIQUE: Frontal view of the chest. COMPARISON: No relevant prior studies available. FINDINGS: Lungs: Slightly prominent interstitial markings over the mid to lower lungs. No definite acute focal infiltrate or consolidation is seen. Pleural space: Unremarkable. No pneumothorax. Heart: Unremarkable. No cardiomegaly. Mediastinum: Unremarkable. Normal mediastinal contour. Bones/joints: Unremarkable. No acute fracture. Upper abdomen: There is no pneumoperitoneum under the diaphragm. IMPRESSION: Slightly prominent interstitial markings over the mid to lower lungs. No definite acute focal infiltrate or consolidation is seen. Electronically signed by: Bryan Benedict MD 07/03/24 22:05 PM
[2024-07-03] MEDS: Patient's ALLERGY Info needs ENTERED STA ×2 (22:14→23:42)
[2024-07-03 22:17] LABS: Chol HDL Ratio 5.1 (0-5)
[2024-07-03] MEDS: PLASMA-LYTE A 1,000 ML IV ONE (23:41)
--- NOTE | 2024-07-04 01:29 | Billing Data ---
Date of Service July 04, 2024 Coding Level of Care Code 84498 CRITICAL CARE 1ST 30-74M Comment Total critical care time 40 minutes
[2024-07-04] MEDS: ICU Protocol for HYPERglycemia SCH (01:30)
[2024-07-04 04:30] LABS: Basophils # (auto) 0.05 K/uL (0.00-0.20); Basophils % (auto) 0.5 %; Eosinophils # (auto) 0.01 K/uL (0.00-0.50); Eosinophils % (auto) 0.1 %; Hematocrit (blood only) 43.1 % (42.0-52.0); Hemoglobin 14.8 g/dl (14.0-18.0); Immature Granulocytes # (auto) 0.04 K/uL (0.01-0.20); Immature Granulocytes % (auto) 0.4 %; Lymphocytes # (auto) 1.52 K/uL (1.20-3.40); Lymphocytes % (auto) 14.3 %; Mean Corpuscular Hemoglobin 30.5 pg (25.0-34.0); Mean Corpuscular Hgb Conc 34.3 g/dL (32.0-36.0); Mean Corpuscular Volume 88.9 fL (80.0-100.0); Mean Platelet Volume 9.9 fL (9.4-12.4); Monocytes # (auto) 0.63 K/uL (0.11-0.59); Monocytes % (auto) 5.9 %; Neutrophils # (auto) 8.37 K/uL (1.40-6.50); Neutrophils % (auto) 78.8 %; Platelet Count 253 K/uL (130-400); RDW Coefficient of Variation 12.1 % (11.5-14.5); RDW Standard Deviation 39.6 fL (36.4-46.3); Red Blood Count 4.85 M/uL (4.70-6.10); White Blood Count 10.62 K/ul (4.8-10.8)
[2024-07-04 04:38] LABS: Partial Thromboplastin Ratio 1.1; Partial Thromboplastin Time 29 Seconds (21-31); Prothrombin Time 10.9 Seconds (9.0-12.0)
[2024-07-04 04:57] LABS: Albumin Globulin Ratio 1.7 (0.9-2); Albumin Level 4.2 gm/dl (3.4-5.0); BUN Creatinine Ratio 15.5 (10-20); Bilirubin,Total 0.4 mg/dl (0.2-1.0); Calcium 9.2 mg/dl (8.6-10.3); Creatinine Clr Calc Pharmacy 91.1 ml/min; Globulin 2.5 gm/dl (2.5-4.0); Potassium 3.8 mmol/L (3.5-5.1); Total Protein 6.7 gm/dl (6.0-8.3)
[2024-07-04 05:40] LABS: Troponin I High Sensitivity 108549.3 pg/ml (0-20)
--- NOTE | 2024-07-04 07:16 | Electrocardiogram Report ---
Test Reason : Blood Pressure : */* mmHG Vent. Rate : 63 BPM Atrial Rate : 63 BPM P-R Int : 148 ms QRS Dur : 92 ms QT Int : 396 ms P-R-T Axes : 43 -13 62 degrees QTcB Int : 405 ms Normal sinus rhythm with sinus arrhythmia Normal ECG When compared with ECG of 03-Jul-2024 20:24, (unconfirmed) Sinus rhythm has replaced Junctional rhythm ST no longer elevated in Inferior leads Confirmed by Chu King ([id number]) on 07/04/2024 7:15:49 AM Referred By: [facility] Confirmed By: Chu King
--- NOTE | 2024-07-04 07:24 | Critical Care Progress Note ---
Date of Service July 04, 2024 Assessment & Plan (1) Acute ST elevation myocardial infarction (STEMI): Plan Impression: 59-year-old male with acute myocardial infarction status post drug- eluting stent to the circumflex. He is doing well and hemodynamically stable. Recommendations: 1. Acute coronary syndrome: Follow-up echocardiogram. Continue metoprolol 12.5 twice daily and uptitrate as tolerated. Holding BRADEN inhibitor pending echocardiogram and given blood pressure. Continue dual antiplatelet therapy. 2. Patient will need outpatient cardiac rehab. 3. Continue high intensity statin. 4. Up to chair and ambulate as tolerated. 5. Glycemic control per protocol Patient's critical care issues are resolved. Critical care will sign off. Disposition per hospitalist. Patient stable to transfer out of the ICU with ultimate disposition per admitting service Admission and Anticipated Discharge Date Admission Date: July 03, 2024 Subjective Patient seen and examined. EMR reviewed. Discussed with bedside critical care nurse. Patient is doing well this morning. He is pain-free. He is not having any shortness of breath. No nausea or vomiting. Denies any syncope or presyncope. No palpitations. Echocardiogram is in progress currently. Review of Systems Review of Systems: All systems reviewed & are unremarkable except as noted in Subjective Physical Exam Constitutional: WD/WN, vitals as above Neck: trachea midline, no thyromegaly Respiratory: normal respiratory effort, lungs clear to auscultation Cardiovascular: RRR, no murmur, no edema Gastrointestinal (Abdomen): normal bowel sounds, soft, nontender, no hepatosplenomegaly Musculoskeletal: Extremities: extremities normal to inspection Skin: no rashes, warm and dry Neurologic: Nonfocal exam Lymphatic: no cervical lymphadenopathy Results & Data Results & Data Vital Signs (Past 12 Hours) Vital Signs Temp Pulse Pulse Resp BP BP Pulse Ox 07/04/24 06:39 63 7 L 93 07/04/24 06:12 79 12 95 07/04/24 06:00 122/80 07/04/24 05:54 73 15 93 07/04/24 05:51 88 16 93 07/04/24 05:51 36.7 C 07/04/24 05:30 99 H 18 96 07/04/24 05:24 96 H 19 96 07/04/24 05:18 97 H 15 96 07/04/24 05:06 83 13 96 07/04/24 05:00 126/85 02/16/25 05:00 86 13 126/85 96 07/04/24 04:42 77 13 96 07/04/24 04:33 86 14 96 07/04/24 04:06 87 13 96 07/04/24 04:00 118/81 07/04/24 03:54 36.7 C 07/04/24 03:51 83 15 96 07/04/24 03:48 87 14 96 07/04/24 03:30 36.7 C 83 11 L 96 07/04/24 03:21 104 H 16 95 07/04/24 03:12 95 H 13 96 07/04/24 03:00 92 H 14 96 07/04/24 03:00 36.7 C 07/04/24 02:51 84 16 96 07/04/24 02:18 83 14 95 07/04/24 02:00 74 13 95 07/04/24 02:00 36.5 C 82 16 07/04/24 01:51 79 12 96 07/04/24 01:42 83 12 95 07/04/24 01:39 75 14 96 07/04/24 01:21 90 12 96 07/04/24 01:03 87 12 95 07/04/24 01:00 121/79 07/04/24 00:56 36.5 C 07/04/24 00:48 99 H 15 96 07/04/24 00:42 97 H 15 96 07/04/24 00:39 87 15 96 07/04/24 00:12 90 14 95 07/04/24 00:01 127/78 07/04/24 00:00 95 H 07/04/24 00:00 84 07/03/24 23:54 87 21 96 07/03/24 23:30 83 14 96 07/03/24 23:18 18 07/03/24 23:15 69 16 95 07/03/24 23:06 76 10 L 94 07/03/24 23:00 124/79 07/03/24 23:00 36.5 C 07/03/24 22:54 99 H 19 97 07/03/24 22:42 66 9 L 95 07/03/24 22:21 57 L 17 94 07/03/24 22:15 63 16 95 07/03/24 22:00 108/69 07/03/24 22:00 108/69 07/03/24 22:00 108/69 07/03/24 22:00 108/69 07/03/24 22:00 108/69 07/03/24 22:00 55 L 14 94 07/03/24 22:00 36.5 C 07/03/24 21:54 36.5 C 07/03/24 21:54 07/03/24 21:51 54 L 18 93 07/03/24 21:45 58 L 21 89 L 07/03/24 21:39 54 L 19 07/03/24 21:35 55 L 07/03/24 20:50 07/03/24 20:41 55 L 21 93 07/03/24 20:39 105/68 07/03/24 20:39 105/68 07/03/24 20:39 105/68 07/03/24 20:39 56 L 20 105/68 94 07/03/24 20:38 58 L 17 94 07/03/24 20:35 58 L 20 94 07/03/24 20:35 94 07/03/24 20:34 93 07/03/24 20:26 59 L 07/03/24 20:24 94 07/03/24 20:24 36.9 C 58 L 21 91/67 L 94 Pulse Ox O2 Del Method O2 Del Method O2 Flow Rate O2 Flow Rate 07/04/24 06:39 07/04/24 06:12 07/04/24 06:00 07/04/24 05:54 07/04/24 05:51 07/04/24 05:51 07/04/24 05:30 07/04/24 05:24 07/04/24 05:18 07/04/24 05:06 07/04/24 05:00 07/04/24 05:00 Nasal Cannula 2 07/04/24 04:42 07/04/24 04:33 07/04/24 04:06 07/04/24 04:00 07/04/24 03:54 07/04/24 03:51 07/04/24 03:48 07/04/24 03:30 07/04/24 03:21 07/04/24 03:12 07/04/24 03:00 07/04/24 03:00 07/04/24 02:51 07/04/24 02:18 07/04/24 02:00 07/04/24 02:00 07/04/24 01:51 07/04/24 01:42 07/04/24 01:39 07/04/24 01:21 07/04/24 01:03 07/04/24 01:00 07/04/24 00:56 07/04/24 00:48 07/04/24 00:42 07/04/24 00:39 07/04/24 00:12 07/04/24 00:01 07/04/24 00:00 07/04/24 00:00 07/03/24 23:54 07/03/24 23:30 07/03/24 23:18 07/03/24 23:15 07/03/24 23:06 07/03/24 23:00 07/03/24 23:00 07/03/24 22:54 07/03/24 22:42 07/03/24 22:21 07/03/24 22:15 07/03/24 22:00 07/03/24 22:00 07/03/24 22:00 07/03/24 22:00 07/03/24 22:00 07/03/24 22:00 07/03/24 22:00 07/03/24 21:54 07/03/24 21:54 94 Nasal Cannula 2 07/03/24 21:51 07/03/24 21:45 07/03/24 21:39 07/03/24 21:35 07/03/24 20:50 Room Air 07/03/24 20:41 07/03/24 20:39 07/03/24 20:39 07/03/24 20:39 07/03/24 20:39 Room Air 07/03/24 20:38 07/03/24 20:35 Room Air 07/03/24 20:35 Room Air 07/03/24 20:34 Nasal Cannula 2 07/03/24 20:26 07/03/24 20:24 Room Air 07/03/24 20:24 Room Air Critical Care Results & Data Vital Signs (Past 12 Hours) Vital Signs Temp Pulse Pulse Resp BP BP Pulse Ox 07/04/24 06:39 63 7 L 93 07/04/24 06:12 79 12 95 07/04/24 06:00 122/80 02/16/25 05:54 73 15 93 07/04/24 05:51 88 16 93 07/04/24 05:51 36.7 C 07/04/24 05:30 99 H 18 96 07/04/24 05:24 96 H 19 96 07/04/24 05:18 97 H 15 96 07/04/24 05:06 83 13 96 07/04/24 05:00 126/85 07/04/24 05:00 86 13 126/85 96 07/04/24 04:42 77 13 96 07/04/24 04:33 86 14 96 07/04/24 04:06 87 13 96 07/04/24 04:00 118/81 07/04/24 03:54 36.7 C 07/04/24 03:51 83 15 96 07/04/24 03:48 87 14 96 07/04/24 03:30 36.7 C 83 11 L 96 07/04/24 03:21 104 H 16 95 07/04/24 03:12 95 H 13 96 07/04/24 03:00 92 H 14 96 07/04/24 03:00 36.7 C 07/04/24 02:51 84 16 96 07/04/24 02:18 83 14 95 07/04/24 02:00 74 13 95 07/04/24 02:00 36.5 C 82 16 07/04/24 01:51 79 12 96 07/04/24 01:42 83 12 95 07/04/24 01:39 75 14 96 07/04/24 01:21 90 12 96 07/04/24 01:03 87 12 95 07/04/24 01:00 121/79 07/04/24 00:56 36.5 C 07/04/24 00:48 99 H 15 96 07/04/24 00:42 97 H 15 96 07/04/24 00:39 87 15 96 07/04/24 00:12 90 14 95 07/04/24 00:01 127/78 07/04/24 00:00 95 H 07/04/24 00:00 84 07/03/24 23:54 87 21 96 07/03/24 23:30 83 14 96 07/03/24 23:18 18 07/03/24 23:15 69 16 95 07/03/24 23:06 76 10 L 94 07/03/24 23:00 124/79 07/03/24 23:00 36.5 C 07/03/24 22:54 99 H 19 97 07/03/24 22:42 66 9 L 95 07/03/24 22:21 57 L 17 94 07/03/24 22:15 63 16 95 07/03/24 22:00 108/69 07/03/24 22:00 108/69 07/03/24 22:00 108/69 07/03/24 22:00 108/69 07/03/24 22:00 108/69 07/03/24 22:00 55 L 14 94 07/03/24 22:00 36.5 C 07/03/24 21:54 36.5 C 07/03/24 21:54 07/03/24 21:51 54 L 18 93 07/03/24 21:45 58 L 21 89 L 07/03/24 21:39 54 L 19 07/03/24 21:35 55 L 07/03/24 20:50 07/03/24 20:41 55 L 21 93 07/03/24 20:39 105/68 07/03/24 20:39 105/68 07/03/24 20:39 105/68 07/03/24 20:39 56 L 20 105/68 94 07/03/24 20:38 58 L 17 94 07/03/24 20:35 58 L 20 94 07/03/24 20:35 94 07/03/24 20:34 93 07/03/24 20:26 59 L 07/03/24 20:24 94 07/03/24 20:24 36.9 C 58 L 21 91/67 L 94 Pulse Ox O2 Del Method O2 Del Method O2 Flow Rate O2 Flow Rate 07/04/24 06:39 07/04/24 06:12 07/04/24 06:00 07/04/24 05:54 07/04/24 05:51 07/04/24 05:51 07/04/24 05:30 07/04/24 05:24 07/04/24 05:18 07/04/24 05:06 07/04/24 05:00 07/04/24 05:00 Nasal Cannula 2 07/04/24 04:42 07/04/24 04:33 07/04/24 04:06 07/04/24 04:00 07/04/24 03:54 07/04/24 03:51 07/04/24 03:48 07/04/24 03:30 07/04/24 03:21 07/04/24 03:12 07/04/24 03:00 07/04/24 03:00 07/04/24 02:51 07/04/24 02:18 07/04/24 02:00 07/04/24 02:00 07/04/24 01:51 07/04/24 01:42 07/04/24 01:39 07/04/24 01:21 07/04/24 01:03 07/04/24 01:00 07/04/24 00:56 07/04/24 00:48 07/04/24 00:42 07/04/24 00:39 07/04/24 00:12 07/04/24 00:01 07/04/24 00:00 07/04/24 00:00 07/03/24 23:54 07/03/24 23:30 07/03/24 23:18 07/03/24 23:15 07/03/24 23:06 07/03/24 23:00 07/03/24 23:00 07/03/24 22:54 07/03/24 22:42 07/03/24 22:21 07/03/24 22:15 07/03/24 22:00 07/03/24 22:00 07/03/24 22:00 07/03/24 22:00 07/03/24 22:00 07/03/24 22:00 07/03/24 22:00 07/03/24 21:54 07/03/24 21:54 94 Nasal Cannula 2 07/03/24 21:51 07/03/24 21:45 07/03/24 21:39 07/03/24 21:35 07/03/24 20:50 Room Air 07/03/24 20:41 07/03/24 20:39 07/03/24 20:39 07/03/24 20:39 07/03/24 20:39 Room Air 07/03/24 20:38 07/03/24 20:35 Room Air 07/03/24 20:35 Room Air 07/03/24 20:34 Nasal Cannula 2 07/03/24 20:26 07/03/24 20:24 Room Air 07/03/24 20:24 Room Air Lab & Micro Results (Past 24 Hours) RBC 4.85 M/uL (4.70-6.10) 07/04/24 WBC 10.62 K/ul (4.8-10.8) 07/04/24 Hgb 14.8 g/dl (14.0-18.0) 07/04/24 Hct 43.1 % (42.0-52.0) 07/04/24 MCV 88.9 fL (80.0-100.0) 07/04/24 MCH 30.5 pg (25.0-34.0) 07/04/24 MCHC 34.3 g/dL (32.0-36.0) 07/04/24 RDW Standard Deviation 39.6 fL (36.4-46.3) 07/04/24 RDW Coefficient of Variation 12.1 % (11.5-14.5) 07/04/24 Plt Count 253 K/uL (130-400) 07/04/24 MPV 9.9 fL (9.4-12.4) 07/04/24 Neutrophils (%) (Auto) 78.8 % 07/04/24 Lymphocytes (%) (Auto) 14.3 % 07/04/24 Monocytes # (Auto) 0.63 K/uL (0.11-0.59) H 07/04/24 Eosinophils # (Auto) 0.01 K/uL (0.00-0.50) 07/04/24 Immature Granulocyte % (Auto) 0.4 % 07/04/24 Neutrophils # (Auto) 8.37 K/uL (1.40-6.50) H 07/04/24 Lymphocytes # (Auto) 1.52 K/uL (1.20-3.40) 07/04/24 Monocytes # (Auto) 0.63 K/uL (0.11-0.59) H 07/04/24 Eosinophils # (Auto) 0.01 K/uL (0.00-0.50) 07/04/24 Basophils # (Auto) 0.05 K/uL (0.00-0.20) 07/04/24 Immature Granulocyte # (Auto) 0.04 K/uL (0.01-0.20) 5 Na 138 mmol/L (136-145) 07/04/24 K 3.8 mmol/L (3.5-5.1) 07/04/24 Cl 107 mmol/L (98-107) 07/04/24 CO2 25 mmol/L (21-32) 07/04/24 Anion Gap 6 (3-11) 07/04/24 BUN 15 mg/dl (6-23) 07/04/24 Creatinine 0.97 mg/dl (0.6-1.4) 07/04/24 BUN/Creatinine Ratio 15.5 (10-20) 07/04/24 Glu 124 mg/dl (70-99(Fasting)) H 07/04/24 Ca 9.2 mg/dl (8.6-10.3) 07/04/24 Total Bilirubin 0.4 mg/dl (0.2-1.0) 07/04/24 AST 205 U/L (13-39) H 07/04/24 ALT 41 U/L (7-52) 07/04/24 Alkaline Phosphatase 62 U/L (34-104) 07/04/24 TP 6.7 gm/dl (6.0-8.3) 07/04/24 Albumin 4.2 gm/dl (3.4-5.0) 07/04/24 Globulin 2.5 gm/dl (2.5-4.0) 07/04/24 Albumin/Globulin Ratio 1.7 (0.9-2) 07/04/24 Mg 2.0 mg/dl (1.7-2.4) 07/04/24 03:54 Calcium Level 9.2 mg/dl (8.6-10.3) 07/04/24 03:54 Prothromb Time International Ratio 1.0 (0.9-1.1) 07/04/24 03:5 4 Diagnostic Findings (Past 24 Hours) Chest X-Ray 07/03/24 20:29 Exam(s): XR CXR 1 VIEW EXAM: XR Chest, 1 View CLINICAL HISTORY: Reason for exam: Chest pain, nonspecific. TECHNIQUE: Frontal view of the chest. COMPARISON: No relevant prior studies available. FINDINGS: Lungs: Slightly prominent interstitial markings over the mid to lower lungs. No definite acute focal infiltrate or consolidation is seen. Pleural space: Unremarkable. No pneumothorax. Heart: Unremarkable. No cardiomegaly. Mediastinum: Unremarkable. Normal mediastinal contour. Bones/joints: Unremarkable. No acute fracture. Upper abdomen: There is no pneumoperitoneum under the diaphragm. IMPRESSION: Slightly prominent interstitial markings over the mid to lower lungs. No definite acute focal infiltrate or consolidation is seen. Electronically signed by: Bryan Benedict MD 07/03/24 22:05 PM I & O Totals 24 Hours 07/03/24 07/04/24 07/05/24 06:59 06:59 06:59 Intake Total 0 / 0 Output Total 451 / 451 Balance -451 / -451 Cumulative 07/03/24 20:11 thru 07/04/24 05:52 Intake Total 0 Output Total 451 Balance -451 RT Ventilator Mngmt (Last Documented) Ventilator Ordered Settings Respiratory Rate 7 07/04/24 06:39 Ventilator - PT Measurements Respiratory Rate 7 Coding Level of Care Code 73756 SUB INP/OBS CARE 2/35MIN Diagnoses Acute ST elevation myocardial infarction (STEMI) I21.3
[2024-07-04] MEDS: ATORVASTATIN 40 MG TAB PO SCH (08:40)
[2024-07-04] MEDS: PANTOprazole 40 MG TAB PO SCH (08:40)
[2024-07-04] MEDS: CLOPIDOGREL BISULFATE 75 MG TAB PO SCH (08:40)
[2024-07-04] MEDS: METOPROLOL TARTRATE 25 MG TAB PO SCH (08:40)
[2024-07-04] MEDS: ASPIRIN 81 MG ECTAB PO SCH (08:40)
[2024-07-04 09:57] LABS: Estimated Average Glucose 128 mg/dl; Hemoglobin A1C 6.1 % (4.5-5.6)
--- NOTE | 2024-07-04 10:40 | Hospitalist Progress Note ---
Date of Service July 04, 2024 Assessment & Plan (1) Acute ST elevation myocardial infarction (STEMI): Plan: Status post successful PCI with JOSIE mid circumflex 99% lesion reduced to 0% The patient was admitted to the ICU post cardiac catheterization for serial card iac enzymes, serial EKG's, cardiac rhythm monitoring and a 2-D echocardiogram with Dopplers. DAPT, aspirin 81 mg daily and clopidogrel 75 mg daily x 1 year Metoprolol tartrate 12.5 mg p.o. twice daily, start in a.m. due to relatively blood pressure at this time Start atorvastatin high-dose 40 mg daily hemodynamically stable awaiting echo results cardiology following (2) CKD (chronic kidney disease) stage 2, GFR 60-89 ml/min: Plan: Creatinine 1.34 upon admission, with no previous baseline for comparison now 0.97 (3) Hyperglycemia: Plan: -glucose 124 today (4) Hyperlipidemia LDL goal <55: Plan: -atorvastatin Plan Plan to d/c to correctional facility once cleared by cardiology. Possibly 07/05 transfer to tele Admission and Anticipated Discharge Date Admission Date: July 03, 2024 Subjective No events overnight. Pt resting comfortably in bed. Review of Systems Review of Systems: CONST: Negative for fever, body aches and chills. HENT: Negative for neck pain/stiffness, headache, congestion, sore throat, swelling. EYES: Negative for discharge/pain or vision changes. RESP: Negative for cough/hemoptysis and shortness of breath. CV: Negative chest pain, difficulty breathing, palpitations. ABD: Negative pain, nausea, vomiting. : Negative increase frequency, dysuria, blood in urine or stool. MUSC: Negative for muscle aches, edema. SKIN: Negative rash, lesions/sores. NEURO: Negative headache, dizziness, weakness. Physical Exam Physical Exam: GENERAL APPEARANCE NAD, activity normal for age, well developed/ well nourished, no cyanosis, pallor, or diaphoresis. EYES lids/conjunctiva normal. EARS/NOSE/THROAT Mucous membranes moist, nares normal, lips/teeth normal uvula midline without oral pharyngeal erythema, exudate or swelling TMs normal bilaterally. No lymphangitis/lymphedema. HEAD/NECK normocephalic atraumatic, no facial trauma, neck is supple. RESPIRATORY respiratory effort normal, speaks in full sentences, no tripod position, no accessory muscle use. Lungs clear to auscultation without rhonchi, wheezes, rales CARDIAC Regular rate and rhythm, no edema. ABDOMINAL Soft, ND/NT. No evidence of fluid wave. No pulsatile masses on exam, rebound tenderness, Rico sign or pain over Mcburney's point. MUSCLES/EXTREMITIES No abnormal range of motion, no swelling. SKIN Warm, pink and dry. No rashes, dermatoses, petechiae or lesions. NEUROLOGICAL Speech is clear and appropriate. Normal level of consciousness. Gait and coordination are normal. 5/5 strength in all extremities. PSYCH Normal mood and affect. Judgement/competence is appropriate Results & Data Results & Data Vital Signs (Past 12 Hours) Vital Signs Temp Pulse Pulse Resp BP BP Pulse Ox 07/04/24 08:00 36.4 C L 78 14 128/89 93 07/04/24 06:39 63 7 L 93 07/04/24 06:12 79 12 95 07/04/24 06:00 122/80 07/04/24 05:54 73 15 93 07/04/24 05:51 88 16 93 07/04/24 05:51 36.7 C 07/04/24 05:30 99 H 18 96 07/04/24 05:24 96 H 19 96 07/04/24 05:18 97 H 15 96 07/04/24 05:06 83 13 96 07/04/24 05:00 126/85 07/04/24 05:00 86 13 126/85 96 07/04/24 04:42 77 13 96 07/04/24 04:33 86 14 96 07/04/24 04:06 87 13 96 07/04/24 04:00 118/81 07/04/24 03:54 36.7 C 07/04/24 03:51 83 15 96 07/04/24 03:48 87 14 07/04/24 03:30 36.7 C 83 11 L 96 07/04/24 03:21 104 H 16 95 07/04/24 03:12 95 H 13 96 07/04/24 03:00 92 H 14 96 07/04/24 03:00 36.7 C 07/04/24 02:51 84 16 96 07/04/24 02:18 83 14 95 07/04/24 02:00 74 13 07/04/24 02:00 36.5 C 82 16 07/04/24 01:51 79 12 96 07/04/24 01:42 83 12 95 07/04/24 01:39 75 14 96 07/04/24 01:21 90 12 96 07/04/24 01:03 87 12 95 07/04/24 01:00 121/79 07/04/24 00:56 36.5 C 07/04/24 00:48 99 H 15 96 07/04/24 00:42 97 H 15 96 07/04/24 00:39 87 15 96 07/04/24 00:12 90 14 95 07/04/24 00:01 127/78 07/04/24 00:00 95 H 07/04/24 00:00 84 07/03/24 23:54 87 21 96 07/03/24 23:30 83 14 96 07/03/24 23:18 18 07/03/24 23:15 69 16 95 07/03/24 23:06 76 10 L 94 07/03/24 23:00 124/79 07/03/24 23:00 36.5 C 07/03/24 22:54 99 H 19 97 07/03/24 22:42 66 9 L 95 O2 Del Method O2 Flow Rate 07/04/24 08:00 Room Air 07/04/24 06:39 07/04/24 06:12 07/04/24 06:00 07/04/24 05:54 07/04/24 05:51 07/04/24 05:51 07/04/24 05:30 07/04/24 05:24 07/04/24 05:18 07/04/24 05:06 07/04/24 05:00 07/04/24 05:00 Nasal Cannula 2 07/04/24 04:42 07/04/24 04:33 07/04/24 04:06 07/04/24 04:00 07/04/24 03:54 07/04/24 03:51 07/04/24 03:48 07/04/24 03:30 07/04/24 03:21 07/04/24 03:12 07/04/24 03:00 07/04/24 03:00 07/04/24 02:51 07/04/24 02:18 07/04/24 02:00 07/04/24 02:00 07/04/24 01:51 07/04/24 01:42 07/04/24 01:39 07/04/24 01:21 07/04/24 01:03 07/04/24 01:00 07/04/24 00:56 07/04/24 00:48 07/04/24 00:42 07/04/24 00:39 07/04/24 00:12 07/04/24 00:01 07/04/24 00:00 07/04/24 00:00 07/03/24 23:54 07/03/24 23:30 07/03/24 23:18 07/03/24 23:15 07/03/24 23:06 07/03/24 23:00 07/03/24 23:00 07/03/24 22:54 07/03/24 22:42 PG Care Time/CCT Total # of Minutes Spent Total Time Spent with Patient: Total time spent is greater than 50% in coordination of care (as documented) at patient's floor/unit and/or counseling patient: Coding Level of Care Code 02750 SUB INP/OBS CARE 2/35MIN Diagnoses Acute ST elevation myocardial infarction (STEMI) I21.3 CKD (chronic kidney disease) stage 2, GFR 60-89 ml/min N18.2 Hyperglycemia R73.9 Hyperlipidemia LDL goal <55 E78.5
--- NOTE | 2024-07-04 17:45 | XCELERA ---
[id number] \\[id number]
[2024-07-05 06:26] LABS: Basophils # (auto) 0.06 K/uL (0.00-0.20); Basophils % (auto) 0.6 %; Eosinophils # (auto) 0.21 K/uL (0.00-0.50); Hematocrit (blood only) 47.2 % (42.0-52.0); Hemoglobin 16.6 g/dl (14.0-18.0); Immature Granulocytes # (auto) 0.04 K/uL (0.01-0.20); Immature Granulocytes % (auto) 0.4 %; Lymphocytes # (auto) 2.36 K/uL (1.20-3.40); Lymphocytes % (auto) 22.6 %; Mean Corpuscular Hemoglobin 31.1 pg (25.0-34.0); Mean Corpuscular Hgb Conc 35.2 g/dL (32.0-36.0); Mean Corpuscular Volume 88.6 fL (80.0-100.0); Mean Platelet Volume 9.6 fL (9.4-12.4); Monocytes # (auto) 0.83 K/uL (0.11-0.59); Neutrophils # (auto) 6.94 K/uL (1.40-6.50); Neutrophils % (auto) 66.4 %; Platelet Count 282 K/uL (130-400); RDW Coefficient of Variation 12.5 % (11.5-14.5); RDW Standard Deviation 40.9 fL (36.4-46.3); Red Blood Count 5.33 M/uL (4.70-6.10); White Blood Count 10.44 K/ul (4.8-10.8)
[2024-07-05 06:33] LABS: Partial Thromboplastin Ratio 0.9; Partial Thromboplastin Time 25 Seconds (21-31); Prothrombin Time 10.8 Seconds (9.0-12.0)
[2024-07-05 06:35] LABS: Albumin Level 4.1 gm/dl (3.4-5.0); Bilirubin,Total 0.6 mg/dl (0.2-1.0); Calcium 9.4 mg/dl (8.6-10.3); Potassium 3.9 mmol/L (3.5-5.1)
[2024-07-05 06:41] LABS: Albumin Globulin Ratio 1.4 (0.9-2); BUN Creatinine Ratio 14.2 (10-20); Creatinine Clr Calc Pharmacy 83.4 ml/min; Globulin 2.9 gm/dl (2.5-4.0)
[2024-07-05 07:49] VITALS: RESP 18; TEMP 97.7; O2SAT 91
--- NOTE | 2024-07-05 10:13 | Discharge Summary ---
Discharge Summary Date of Service July 05, 2024 Principal Dx & Hospital Course #1 = Principal Diagnosis (1) Acute ST elevation myocardial infarction (STEMI): Status post successful PCI with JOSIE mid circumflex 99% lesion reduced to 0% The patient was admitted to the ICU post cardiac catheterization for serial cardiac enzymes, serial EKG's, cardiac rhythm monitoring and a 2-D echocardiogram with Dopplers. DAPT, aspirin 81 mg daily and clopidogrel 75 mg daily x 1 year Metoprolol tartrate 12.5 mg p.o. twice daily, start in a.m. due to relatively blood pressure at this time Start atorvastatin high-dose 40 mg daily hemodynamically stable awaiting echo results cardiology following (2) CKD (chronic kidney disease) stage 2, GFR 60-89 ml/min: Creatinine 1.34 upon admission, with no previous baseline for comparison now 0.97 (3) Hyperglycemia: -glucose 124 today (4) Hyperlipidemia LDL goal <55: -atorvastatin Plan Plan to d/c to correctional facility once cleared by cardiology. Possibly 07/05 transfer to tele Admission [facility] Per Admitting Provider The patient is a 59-year-old male with no significant past medical history.The patient presented to the emergency department from [facility], after developing acute onset of chest pain at about 730 this evening, while he was receiving his usual medications there. He was given aspirin 324 mg, and sublingual nitroglycerin x 2, which took his pain from a 8/10 down to 4/10. Upon initial messaging from [facility], patient was made as a heart alert. Upon arrival to the ED, he was found to have an inferior wall STEMI, and was taken emergently to the [facility], where a successful PCI with JOSIE to mid circumflex 99% lesion, that was reduced to 0% was performed. The patient is being admitted to the ICU, for ongoing medical care. Significant laboratories revealed troponin of 91.0, glucose 212, and creatinine 1.34. Discharge Exam GENERAL APPEARANCE NAD, activity normal for age, well developed/ well nourished, no cyanosis, pallor, or diaphoresis. EYES lids/conjunctiva normal. EARS/NOSE/THROAT Mucous membranes moist, nares normal, lips/teeth normal uvula midline without oral pharyngeal erythema, exudate or swelling TMs normal bilaterally. No lymphangitis/lymphedema. HEAD/NECK normocephalic atraumatic, no facial trauma, neck is supple. RESPIRATORY respiratory effort normal, speaks in full sentences, no tripod posit ion, no accessory muscle use. Lungs clear to auscultation without rhonchi, wheezes, rales CARDIAC Regular rate and rhythm, no edema. ABDOMINAL Soft, ND/NT. No evidence of fluid wave. No pulsatile masses on exam, rebound tenderness, Rico sign or pain over Mcburney's point. MUSCLES/EXTREMITIES No abnormal range of motion, no swelling. SKIN Warm, pink and dry. No rashes, dermatoses, petechiae or lesions. NEUROLOGICAL Speech is clear and appropriate. Normal level of consciousness. Gait and coordination are normal. 5/5 strength in all extremities. PSYCH Normal mood and affect. Judgement/competence is appropriate Discharge Plan Discharge Items Patient Disposition[facility] Reason For Visit: IWMI STEMI Discharge Diagnosis: STEMI CAD Activity: Resume your previous activity Non-emergency contact: Primary Care Provider Call non-emergency contact if: you have any medication questions Follow-up/Referrals: Patti BRADLEY [Primary Care Provider] - Diet: Heart Healthy Addtl Attending Provider Instructions: Follow up with PMD in 2 weeks Pending Studies at Discharge: No Stand-Alone Forms: [facility] Skilled Items Patient informed of condition?: Yes Discharge Level of Care: Other Communicable Disease: No Discharge Prognosis: Stable Lines: None Urinary Catheter: No Medications and DC Order Prescriptions: New atorvastatin 40 mg Tablet 40 mg PO QAM Qty: 30 0RF clopidogrel 75 mg Tablet 75 mg PO QAM Qty: 30 0RF aspirin 81 mg Tablet,Delayed Release (Dr/Ec) 81 mg PO QAM Qty: 30 0RF metoprolol tartrate 25 mg Tablet 12.5 mg PO BID Qty: 60 0RF Discharge Orders: Discharge Order (Routine); Ordered 07/05/24 Ordered By: Pedro Luis Menard/Other Patient Handouts: Prediabetes, 5 Steps for Eating Healthier Admission Data Admit Date/Time: 07/03/24 21:34 Attending Provider: Pedro Luis Schaeffer Admit Provider: Logan Sexton Primary Care Provider: Patti BRADLEY Other Providers: Logan Sexton; Eliu Russell Hospital Stay Data Consultations 07/03/24 20:53 ED Decision to Admit Stat 07/03/24 21:43 Consult Internal Medicine Routine 07/03/24 21:54 Consult Blank Driller Routine Procedures Performed Operation Date: 07/03/24 20:35 Actual Procedures p Cineradiography w/Routine Exam - Manas Irene MD p Aspiration/PCI w/JOSIE for Stemi - Manas Irene MD Diagnostic Imagining Performed 07/03/24 20:35 CL Cath Imgs for PACS use only Stat Pending Results Patient Have Any Pending Studies at Discharge: No Discharge Instructions Given to Patient (Per Discharging Provider) Follow up with PMD in 2 weeks Total Time Total Time Spent Total Time Spent (In Minutes): 50 Coding Level of Care Code 20204 INP/OBS DISCH >[address] elevation myocardial infarction (STEMI) I21.3 CKD (chronic kidney disease) stage 2, GFR 60-89 ml/min N18.2 Hyperglycemia R73.9 Hyperlipidemia LDL goal <55 E78.5
--- NOTE | 2024-07-05 10:53 | Cardiology Consultation ---
Date of Consultation July 05, 2024 Assessment & Plan (1) Acute ST elevation myocardial infarction (STEMI): (2) Ischemic cardiomyopathy: (3) Hyperlipidemia LDL goal <55: Plan 1. ST elevation myocardial infarction: This involved of a subtotal occlusion of the circumflex artery. He had a significant elevation in his biomarkers and resultant injury. Hopefully just stunned. He underwent successful percutaneous intervention. No other obstructive lesions noted at the time of angiography. Started on medical therapy to include beta-ryland, high-dose atorvastatin and dual antiplatelet therapy. He would benefit from initiation of BRADEN inhibition as well. I will start lisinopril. EF not reduced enough to be a candidate for spironolactone despite new diagnosis of diabetes. He may benefit from anti- inflammatory therapy with colchicine. No recurrent symptoms. No evidence of heart failure. No electrical instability or mechanical complication. 2. Ischemic cardiomyopathy: He has mildly reduced LV systolic function based on his recent infarct. Medical therapy initiated as noted above. 3. Hyperlipidemia: Goal LDL less than 55. Started on high-dose atorvastatin. If he is not ambulatory without recurrent symptoms he would seem to be a reasonable candidate for discharge. I will continue his current medications with the switch of metoprolol to tartrate to metoprolol succinate 25 mg daily. Lisinopril 5 mg daily initiated. He is also good candidate for colchicine 0.6 mg daily. He will need to have his renal function and electrolytes checked in a few days at the facility. History of Present Illness Reason for Consultation: STEMI Attending Physician: Pedro Luis Schaeffer MD History of Present Illness The patient is a 59-year-old gentleman without a known history of coronary disease who is currently incarcerated. He notes the onset of substernal chest pressure and associated dyspnea on Friday. He was at rest at the time. He states he may have some radiation into the left arm but none in the jaw. No back pain. He was not dizzy or lightheaded and was not aware of any p alpitations. He try to get comfortable by changing positions but this was ineffective. Due to concerns about his symptoms he was brought to the hospital and an EKG revealed an inferior injury. He was brought emergently to the catheterization suite where he was found to have an acute coronary syndrome involving the left circumflex. He underwent percutaneous intervention to that vessel. He was sent to the [facility] and started on medical therapy. Patient states in general he is sedentary but does walk regularly. He does not exercise vigorously. He has not had symptoms of this nature in the past. He is limited to some degree by breathing difficulty that he attributes to COPD. He has no orthopnea. Has not noticed any lower extremity edema. No sense of palpitation. No dizziness or lightheadedness. Currently feeling well without recurrent symptoms. No orthopnea, no breathing difficulties. Has not been aware of any palpitations. No discomfort at the right radial access site. Allergies Allergy/AdvReac Type Severity Reaction Status Date / Time No Known Allergies Allergy Unverified 07/03/24 23:22 Home Medications Medication Instructions Recorded Confirmed Type aspirin 81 mg tablet,delayed 81 mg PO QAM #30 tabs 07/05/24 Rx release atorvastatin 40 mg tablet 40 mg PO QAM #30 tabs 07/05/24 Rx clopidogrel 75 mg tablet 75 mg PO QAM #30 tabs 07/05/24 Rx metoprolol tartrate 25 mg tablet 12.5 mg (1/2 x 25 mg) PO BID #60 07/05/24 Rx tabs Patient History Medical History (Updated 07/05/24 @ 10:50 by Chu King MD) Smoking hx Elevated fasting glucose COPD (chronic obstructive pulmonary disease) Family History (Updated 07/03/24 @ 21:56 by ADALBERTO Roberson) Mother Coronary heart disease Other Dyslipidemia Hypertension Social History Smoking Status: Former smoker Hx Alcohol Use: No Hx Substance Use: Yes Preferred Language: Albanian Communication Ability: Effective Beliefs That Will Affect Care: None Current Living Situation: Other Current Living Situation Comment: [facility] facility Feels Safe at Home: Yes Assistive Devices: None Review of Systems Review of Systems: Per HPI Physical Exam Physical Exam: The patient is alert and oriented. Mood and affect appeared normal. He answered all questions appropriately. HEENT: Pupils are equal and reactive to light and accommodation. Extraocular movements are intact. The sclerae are anicteric. Neuro: Cranial nerves intact Lungs: Clear to auscultation bilaterally. He has good air movement without use of accessory muscles. No rales wheezes or rhonchi. Cardiac: Heart demonstrates a regular rate and rhythm. Normal S1 and S2. No murmurs on examination. Pulses: The patient has palpable radial pulses bilaterally that are equal in intensity Extremities: There was no evidence of hypoperfusion. There is no cyanosis or clubbing. There is no edema. Good perfusion of the right hand. Palpable right radial pulse. Skin: I did not appreciate any rashes on examination today. Results & Data Vital Signs (Past 12 Hours) Vital Signs Temp Pulse Pulse Resp BP BP Pulse Ox 07/05/24 07:48 36.5 C 82 18 126/84 91 07/05/24 07:44 65 07/05/24 03:46 36.6 C 78 16 129/75 93 07/04/24 23:07 36.4 C L 83 16 125/85 92 O2 Del Method 07/05/24 07:48 Room Air 07/05/24 07:44 07/05/24 03:46 Room Air 07/04/24 23:07 Room Air Laboratory Results Abnormal Lab Results 07/04/24 07/04/24 07/05/24 10:28 17:01 06:05 WBC 10.44 RBC 5.33 Hgb 16.6 Hct 47.2 MCV 88.6 MCH 31.1 MCHC 35.2 RDW Std Deviation 40.9 RDW Coeff of Lili 12.5 Plt Count 282 MPV 9.6 Immature Gran % (Auto) 0.4 Neut % (Auto) 66.4 Lymph % (Auto) 22.6 Mcclain % (Auto) 8.0 Eos % (Auto) 2.0 Baso % (Auto) 0.6 Neut # (Auto) 6.94 H Lymph # (Auto) 2.36 Mcclain # (Auto) 0.83 H Eos # (Auto) 0.21 Baso # (Auto) 0.06 Immature Gran # (Auto) 0.04 PT 10.8 INR 1.0 APTT 25 PTT Ratio 0.9 Sodium 139 Potassium 3.9 Chloride 108 H Carbon Dioxide 24 Anion Gap 7 BUN 15 Creatinine 1.06 Est Cr Clr Drug Dosing 83.4 eGFR 81.35 BUN/Creatinine Ratio 14.2 Glucose 107 H POC Glucose 116 H Calcium 9.4 Magnesium 2.0 Total Bilirubin 0.6 AST 82 H ALT 33 Alkaline Phosphatase 70 Troponin I High Sens 10175.3 H* D Total Protein 7.0 Albumin 4.1 Globulin 2.9 Albumin/Globulin Ratio 1.4 07/05/24 08:15 WBC RBC Hgb Hct MCV MCH MCHC RDW Std Deviation RDW Coeff of Lili Plt Count MPV Immature Gran % (Auto) Neut % (Auto) Lymph % (Auto) Mcclain % (Auto) Eos % (Auto) Baso % (Auto) Neut # (Auto) Lymph # (Auto) Mcclain # (Auto) Eos # (Auto) Baso # (Auto) Immature Gran # (Auto) PT INR APTT PTT Ratio Sodium Potassium Chloride Carbon Dioxide Anion Gap BUN Creatinine Est Cr Clr Drug Dosing eGFR BUN/Creatinine Ratio Glucose POC Glucose 105 H Calcium Magnesium Total Bilirubin AST ALT Alkaline Phosphatase Troponin I High Sens Total Protein Albumin Globulin Albumin/Globulin Ratio Diagnostic Findings Echocardiogram 07/04/2024: Mild reduced LV systolic function with ejection fraction 45 to 50%. Regional wall motion abnormalities. Stage I diastolic dysfunction. No significant valvular heart disease Cardiac catheterization 07/03/2024: Normal left main. Nonobstructive disease involving the LAD. Myocardial bridging in the mid vessel. Subtotal occlusion of the mid circumflex. Nonobstructive disease in the proximal RCA. LVEDP 15 mmHg PG Care Time/CCT Total # of Minutes Spent Total Time Spent with Patient: Total time spent is greater than 50% in coordination of care (as documented) at patient's floor/unit and/or counseling patient: Coding Level of Care Code 91415 IN/OBS CONSULT LVL 4,60M Diagnoses Acute ST elevation myocardial infarction (STEMI) I21.3 Ischemic cardiomyopathy I25.5 Hyperlipidemia LDL goal <55 E78.5
[2024-07-05 11:59] VITALS: BP 120/80
[2024-07-05] MEDS: lisinopril 5 MG TAB PO SCH (11:59)
[2024-07-05] MEDS: INFLUENZA VACC TS2024-25(6m+)/PF (IIV3) 0.5mL Syr IM ONE (14:23)
[2024-07-05 14:33] VITALS: PULSE 84
[2024-07-06] MEDS ORDERED: METOPROLOL SUCC 25MG EXT REL TAB PO SCH (09:00)
== END 2024-07-05 16:08 | DRG 322 ==
LOC: ED 20:20 → CC 20:50 → 1E 20:50 → SUATTDRO 21:34 → 2W 07-04 12:20